=== PATIENT | female | born 1990 | race African-American/Black ===

== ENCOUNTER 2018-09-13 18:33 | Emergency (ER) | payer MEDICAID ==
[~2018-09-13] VITALS: Ht 160 cm; Wt 104.3 kg
[2018-09-13 18:52] VITALS: BP 108/65
--- NOTE | 2018-09-13 18:55 | NUR ---
ED Nurse Note:c/o left earache x 1 week no dizziness, no n/v no drainage. denies FB into left ear. a/ox4
--- NOTE | 2018-09-13 19:05 | NUR ---
HAND-OFF: Report given to CARROLL Shirley.
--- NOTE | 2018-09-13 19:15 | Emergency Room Report ---
History of Present Illness General Chief Complaint: Earache Source: Patient Present Illness HPI 28-year-old female with no significant past medical history here complaining of pain in the left ear x1 week. Patient reports that it started after she was swimming a week ago and she was flying after which maximize the pain. Patient denies any hearing loss, sore throat, cough and congestion. Patient is rating the pain 10 out of 10 mostly upon palpation of the tragus. Has taken ibuprofen and [id number]-[id number] eardrops for symptom relief. Denies chest pain, shortness of breath, palpitation, vertigo, dizziness, hearing loss, tinnitus, and all other associated symptoms. Allergies: Coded Allergies: No Known Allergies (Unverified , 09/13/18) Patient History Past Medical History: see triage record Past Surgical History: unable to obtain Pertinent Family History: none Last Menstrual Period: last month Now: No Immunizations: UTD Reviewed Nursing Documentation: PMH: Agreed; PSxH: Agreed Nursing Documentation-PMH Past Medical History: No Stated History Review of Systems All Other Systems: negative except mentioned in HPI Physical Exam Vital Signs Date Time Temp Pulse Resp B/P (MAP) Pulse Ox O2 Delivery O2 Flow Rate FiO2 09/13/18 18:43 98.1 93 19 108/65 (79) 99 Room Air Sp02 EP Interpretation: reviewed, normal General Appearance: normal inspection, well appearing, no apparent distress, alert, GCS 15 Head: normocephalic, atraumatic Eyes: bilateral eye normal inspection, bilateral eye PERRL ENT: normal pharynx, no angioedema, other - Erythema of left external ear canal and tragus tender to palpation however tympanic membrane is intact Neck: normal inspection, full range of motion, supple Respiratory: normal inspection, chest non-tender, no rhonchi, no wheezing Cardiovascular #1: normal inspection, normal peripheral pulses, regular rate, rhythm, no edema, no murmur Gastrointestinal: normal inspection, non tender Genitourinary: no CVA tenderness Neurologic: normal inspection, alert, oriented x3, responsive Psychiatric: normal inspection, judgement/insight normal Skin: no rash Lymphatic: normal inspection, no adenopathy Medical Decision Making PA Attestation All my diagnosis and treatment plans were reviewed ad discussed with my supervising physician Dr. Lowe Diagnostic Impression: Primary Impression: Otitis externa ER Course 28-year-old female with no significant past medical history here complaining of pain in the left ear x1 week. Patient reports that it started after she was swimming a week ago and she was flying after which maximize the pain. Patient denies any hearing loss, sore throat, cough and congestion. Patient is rating the pain 10 out of 10 mostly upon palpation of the tragus. Has taken ibuprofen and [id number]-qngouch eardrops for symptom relief. Denies chest pain, shortness of breath, palpitation, vertigo, dizziness, hearing loss, tinnitus, and all other associated symptoms. Ddx considered but are not limited to: Otitis externa, otitis media,. Perforated tympanic membrane, sinusitis Vital signs: are WNL, pt. is afebrile H&PE are most consistent with: Otitis externa ORDERS: Corticosporin otic solution, naproxen ED INTERVENTIONS: None required at this time. DISCHARGE: At this time pt. is stable for d/c to home. Will provide printed patient care instructions, and any necessary prescriptions. Care plan and follow up instructions have been discussed with the patient prior to discharge. Follow-up with your primary care provider if worsening symptoms referral to ear nose throat doctor needed at this time he denies any discharge from the ear and no pus is noted within the ear canal. Last Vital Signs Date Time Temp Pulse Resp B/P (MAP) Pulse Ox O2 Delivery O2 Flow Rate FiO2 09/13/18 18:52 98.1 93 19 108/65 99 Room Air Disposition: HOME, SELF-CARE Condition: Stable Scripts Naproxen* (NAPROXEN*) 500 Mg Tablet 500 MG ORAL TWICE A DAY, #21 TAB Prov: Belle Courtney 09/13/18 Neomycin/Polymyxin B Sulf/Hc* (CORTISPORIN EAR SOLUTION*) 10 Ml Solution 4 DROP LEFT EAR QID, #10 ML 0 Refills Prov: Belle Courtney 09/13/18 Patient Instructions: Otitis Externa Additional Instructions: Use eardrops accordingly avoid water exposure and swimming see primary care provider for referral to ear nose throat doctor if needed. Belle Courtney Sep 13, 2018 19:15
[2018-09-13] MEDS ORDERED: NAPROXEN500 M2 ORAL (19:17)
[2018-09-13] MEDS ORDERED: CORTISPORIN EAR10 ML LEFT EAR (19:17)
--- NOTE | 2018-09-13 19:20 | NUR ---
ER DISCHARGE NOTE: Patient is cleared to be discharged per ERMD, pt is aox4, on room air, with stable vital signs. pt was given dc and prescription instructions, pt was able to verbalize understanding, pt id band removed without complications. pt is able to ambulate with steady gait. pt took all belongings.
[2018-09-13 19:28] VITALS: BP 108/65
== END 2018-09-13 19:25 | disposition home or self-care (01) ==
LOC: EMR 19:14
DX: H66.92 Otitis media, unspecified, left ear (principal)
CPT/HCPCS: 99282